=== PATIENT | female | born 1940 | race Caucasian/White ===

== ENCOUNTER → 2017-08-09 | Outpatient (CLI) | payer MEDICARE ==
--- NOTE | 2017-08-09 14:11 | XR ---
Cervical spine HISTORY: Neck pain, degenerative osteoarthritis 5 views of the cervical spine Marked facet arthropathy changes are present bilaterally. Lateral extension of endplates causes lurdes inal encroachment on the left at C3-4, C4-5 and on the right or 5 and C5-6. Cervical vertebral bodies show preserved height, alignment, bone mineralization is reduced. Loss of disc height present at the intervertebral levels especially C3-4, C4-5 and C5-6, there is associated spondylosis. Prevertebral soft tissues are normal. IMPRESSION: Degenerative disc disease, facet arthropathy, foraminal encroachment.
== END | disposition home or self-care (01) ==
LOC: RADXRMAIN 10:35
PROVIDERS: ATTEND Otolaryngology
DX: M50.30 Other cervical disc degeneration, unspecified cervical region (principal); M46.82 Other specified inflammatory spondylopathies, cervical region; M19.90 Unspecified osteoarthritis, unspecified site
CPT/HCPCS: 72050

== ENCOUNTER 2024-03-22 11:31 | Inpatient (IN) | payer MEDICARE ==
--- NOTE | 2024-03-22 12:31 | ED ---
General Adult HPI - General Chief complaint: Weakness Stated complaint: Weakness Time Seen by Provider: 03/22/24 11:45 Source: patient, RN notes reviewed, old records reviewed Mode of arrival: ambulatory Limitations: no limitations - History of Present Illness Initial comments: This is an 83-year-old female who presents to the emergency department compl aining of generalized weakness. Patient states she has been treated for urinary tract infection with Bactrim and she is out of the meds at this point in time. Patient states the weakness just has gotten worse. Patient states last night she was sitting on the bed and she slid off onto her bottom but was unable to get up without maximal amount of effort. Patient states after that she vomited x 1. Patient states she still remains nauseous but no more vomiting no diarrhea patient denies chest pain difficulty breathing shortness of breath. Patient has any fever chills per patient is abdominal pain. Patient denies any back pain. Patient states she has no more dysuria that seems to have resolved with the antibiotic. - Related Data Home Medications Medication Instructions Recorded Confirmed Clopidogrel [Plavix] 75 mg PO DAILY 03/22/24 03/22/24 Enalapril [Vasotec] 20 mg PO DAILY 03/22/24 03/22/24 Levothyroxine Sodium [Synthroid] 75 mcg PO DAILY 03/22/24 03/22/24 Metoprolol Succinate (ER) [Toprol 25 mg PO DAILY 03/22/24 03/22/24 Xl] Rosuvastatin Calcium [Crestor] 40 mg PO DAILY 03/22/24 03/22/24 Sulfamethox-Tmp 800-160Mg [Bactrim 1 tab PO BID 03/22/24 03/22/24 DS 800-160 mg] Allergies Allergy/AdvReac Type Severity Reaction Status Date / Time No Known Allergies Allergy Verified 03/22/24 12:44 Review of Systems ROS Statement: Those systems with pertinent positive or pertinent negative responses have been documented in the HPI. ROS Other: All systems not noted in ROS Statement are negative. Past Medical History Past Medical History: Coronary Artery Disease (CAD), Hyperlipidemia, Hypertension, Thyroid Disorder History of Any Multi-Drug Resistant Organisms: None Reported Past Surgical History: No Surgical Hx Reported Past Psychological History: No Psychological Hx Reported Smoking Status: Never smoker Past Alcohol Use History: None Reported Past Drug Use History: None Reported General Exam - General Exam Comments Initial Comments: GENERAL: Patient is well-developed and well-nourished. Patient is nontoxic and well- hydrated and is in mild distress. ENT: Neck is soft and supple. No significant lymphadenopathy is noted. Oropharynx is clear. Moist mucous membranes. Neck has full range of motion without eliciting any pain. EYES: The sclera were anicteric and conjunctiva were pink and moist. Extraocular movements were intact and pupils were equal round and reactive to light. Eyelids were unremarkable. PULMONARY: Unlabored respirations. Good breath sounds bilaterally. No audible rales rhonchi or wheezing was noted. CARDIOVASCULAR: There is a regular rate and rhythm without any murmurs gallops or rubs. ABDOMEN: Soft and nontender with normal bowel sounds. SKIN: Skin is clear with no lesions or rashes and otherwise unremarkable. NEUROLOGIC: Patient is alert and oriented x3. Cranial nerves II through XII are grossly intact. Motor and sensory are also intact. Normal speech, volume and content. Symmetrical smile. MUSCULOSKELETAL: Normal extremities with adequate strength and full range of motion. LYMPHATICS: No significant lymphadenopathy is noted PSYCHIATRIC: Normal psychiatric evaluation. Limitations: no limitations Course Vital Signs 03/22/24 03/22/24 11:35 13:38 Temperature 97.8 F Pulse Rate 70 55 L Respiratory 20 18 Rate Blood Pressure 124/57 138/54 O2 Sat by Pulse 96 96 Oximetry Medical Decision Making - Medical Decision Making EKG is interpreted by myself read EKG shows sinus bradycardia 57 bpm UT was 179 QRS is 100 QT interval 376 QTc is 371. Patient EKG shows no ST segment ovation or depression Was pt. sent in by a medical professional or institution (, PA, REFRIGERATION SYSTEM INSTALLER, urgent care, hospital, or fdc...) When possible be specific @ -No Did you speak to anyone other than the patient for history (EMS, parent, family, police, friend...)? What history was obtained from this source @ -No Did you review nursing and triage notes (agree or disagree)? Why? @ -I reviewed and agree with nursing and triage notes Were old charts reviewed (outside hosp., previous admission, EMS record, old EKG, old radiological studies, urgent care reports/EKG's, fdc records)? Report findings @ -No old charts were reviewed Differential Diagnosis (chest pain, altered mental status, abdominal pain women, abdominal pain men, vaginal bleeding, weakness, fever, dyspnea, syncope, headache, dizziness, GI bleed, back pain, seizure, CVA, palpatations, mental health, musculoskeletal)? @ -Differential Weakness: Hypoglycemia, shock, sepsis, hyponatremia, anemia, infection, CO, ETOH, adverse medicine reaction, overdose, stroke, this is not meant to be an all-inclusive list. EKG interpreted by me (3pts min.). @ -As above X-rays interpreted by me (1pt min.). @ -Chest x-ray shows no acute normality CT interpreted by me (1pt min.). @ -None done U/S interpreted by me (1pt. min.). @ -None done What testing was considered but not performed or refused? (CT, X-rays, U/S, labs)? Why? @ -None What meds were considered but not given or refused? Why? @ -None Did you discuss the management of the patient with other professionals (professionals i.e. , PA, REFRIGERATION SYSTEM INSTALLER, lab, RT, psych nurse, social media executive, counter installer, teacher, special loan officer, heel caser)? Give summary @ -I spoke with Dr. Ramirez agreed to admit the patient to the patient relative and yours Was smoking cessation discussed for >3mins.? @ -No Was critical care preformed (if so, how long)? @ -No Were there social determinants of health that impacted care today? How? (Homelessness, low income, unemployed, alcoholism, drug addiction, transportation, low edu. Level, literacy, decrease access to med. care, longterm, rehab)? @ -No Was there de-escalation of care discussed even if they declined (Discuss DNR or withdrawal of care, Hospice)? DNR status @ -No What co-morbidities impacted this encounter? (DM, HTN, Smoking, COPD, CAD, Cancer, CVA, ARF, Chemo, Hep., AIDS, mental health diagnosis, sleep apnea, morbid obesity)? @ -None Was patient admitted / discharged? Hospital course, mention meds given and route, prescriptions, significant lab abnormalities, going to OR and other pertinent info. @ -Patient's sodium was low I did give the patient 500 cc bolus. Patient was still feeling considerably weak and did not feel comfortable going home so she did want to stay I spoke with Dr. Ramirez agreed admit the patient admit the patient recommending her Undiagnosed new problem with uncertain prognosis? @ -No Drug Therapy requiring intensive monitoring for toxicity (Heparin, Nitro, Insulin, Cardizem)? @ -No Were any procedures done? @ -No Diagnosis/symptom? @ -Weakness Acute, or Chronic, or Acute on Chronic? @ -Acute Uncomplicated (without systemic symptoms) or Complicated (systemic symptoms)? @ -Complicated Side effects of treatment? @ -No Exacerbation, Progression, or Severe Exacerbation? @ -No Poses a threat to life or bodily function? How? (Chest pain, USA, CO, pneumonia, PE, COPD, DKA, ARF, appy, cholecystitis, CVA, Diverticulitis, Homicidal, Suicidal, threat to staff... and all critical care pts) @ -No Diagnosis/symptom? @ -Hyponatremia Acute, or Chronic, or Acute on Chronic? @ -Acute Uncomplicated (without systemic symptoms) or Complicated (systemic symptoms)? @ -Complicated Side effects of treatment? @ -None Exacerbation, Progression, or Severe Exacerbation] @ -No Poses a threat to life or bodily function? @ -Yes this can lead to extreme weakness and falls. - Lab Data Result diagrams: 03/22/24 12:05 03/22/24 12:05 Lab Results 03/22/24 03/22/24 03/22/24 Range/Units 12:02 12:05 12:05 WBC 6.9 (3.8-10.6) k/uL RBC 4.30 (3.80-5.40) m/uL Hgb 13.7 (11.4-16.0) gm/dL Hct 40.0 (34.0-46.0) % MCV 93.0 (80.0-100.0) fL MCH 31.9 (25.0-35.0) pg MCHC 34.3 (31.0-37.0) g/dL RDW 12.6 (11.5-15.5) % Plt Count 187 (150-450) k/uL MPV 7.8 Neutrophils % 64 % Lymphocytes % 25 % Monocytes % 8 % Eosinophils % 1 % Basophils % 0 % Neutrophils # 4.4 (1.3-7.7) k/uL Lymphocytes # 1.7 (1.0-4.8) k/uL Monocytes # 0.5 (0-1.0) k/uL Eosinophils # 0.1 (0-0.7) k/uL Basophils # 0.0 (0-0.2) k/uL PT 10.1 (10.0-12.5) sec INR 0.9 (<1.2) APTT 22.3 (22.0-30.0) sec Sodium (137-145) mmol/L Potassium (3.5-5.1) mmol/L Chloride (98-107) mmol/L Carbon Dioxide (22-30) mmol/L Anion Gap mmol/L BUN (7-17) mg/dL Creatinine (0.52-1.04) mg/dL Est GFR (CKD-EPI)AfAm (>60 ml/min/1.73 sqM) Est GFR (CKD-EPI)NonAf (>60 ml/min/1.73 sqM) Glucose (74-99) mg/dL Plasma Lactic Acid Andry (0.7-2.0) mmol/L Calcium (8.4-10.2) mg/dL Magnesium (1.6-2.3) mg/dL Total Bilirubin (0.2-1.3) mg/dL AST (14-36) U/L ALT (4-34) U/L Alkaline Phosphatase (38-126) U/L Troponin I (0.000-0.034) ng/mL Total Protein (6.3-8.2) g/dL Albumin (3.5-5.0) g/dL TSH (0.465-4.680) mIU/L Urine Color Colorless Urine Appearance Cloudy H (Clear) Urine pH 6.0 (5.0-8.0) Ur Specific [place] 1.016 (1.001-1.035) Urine Protein 1+ H (Negative) Urine Glucose (UA) Negative (Negative) Urine Ketones Negative (Negative) Urine Blood Moderate H (Negative) Urine Nitrite Negative (Negative) Urine Bilirubin Negative (Negative) Urine Urobilinogen <2.0 (<2.0) mg/dL Ur Leukocyte Esterase Negative (Negative) Urine RBC 1 (0-5) /hpf Urine WBC 7 H (0-5) /hpf Ur Squamous Epith Cells 3 (0-4) /hpf Amorphous Sediment Rare H (None) /hpf Hyaline Casts 5 H (0-2) /lpf Urine Mucus Rare H (None) /hpf 03/22/24 03/22/24 03/22/24 Range/Units 12:05 12:05 12:05 WBC (3.8-10.6) k/uL RBC (3.80-5.40) m/uL Hgb (11.4-16.0) gm/dL Hct (34.0-46.0) % MCV (80.0-100.0) fL MCH (25.0-35.0) pg MCHC (31.0-37.0) g/dL RDW (11.5-15.5) % Plt Count (150-450) k/uL MPV Neutrophils % % Lymphocytes % % Monocytes % % Eosinophils % % Basophils % % Neutrophils # (1.3-7.7) k/uL Lymphocytes # (1.0-4.8) k/uL Monocytes # (0-1.0) k/uL Eosinophils # (0-0.7) k/uL Basophils # (0-0.2) k/uL PT (10.0-12.5) sec INR (<1.2) APTT (22.0-30.0) sec Sodium 128 L (137-145) mmol/L Potassium 3.8 (3.5-5.1) mmol/L Chloride 100 (98-107) mmol/L Carbon Dioxide 21 L (22-30) mmol/L Anion Gap 7 mmol/L BUN 17 (7-17) mg/dL Creatinine 1.51 H (0.52-1.04) mg/dL Est GFR (CKD-EPI)AfAm 36 (>60 ml/min/1.73 sqM) Est GFR (CKD-EPI)NonAf 32 (>60 ml/min/1.73 sqM) Glucose 110 H (74-99) mg/dL Plasma Lactic Acid Andry 1.0 (0.7-2.0) mmol/L Calcium 10.1 (8.4-10.2) mg/dL Magnesium 2.1 (1.6-2.3) mg/dL Total Bilirubin 0.6 (0.2-1.3) mg/dL AST 53 H (14-36) U/L ALT 62 H (4-34) U/L Alkaline Phosphatase 91 (38-126) U/L Troponin I 0.013 (0.000-0.034) ng/mL Total Protein 6.2 L (6.3-8.2) g/dL Albumin 3.9 (3.5-5.0) g/dL TSH 0.606 (0.465-4.680) mIU/L Urine Color Urine Appearance (Clear) Urine pH (5.0-8.0) Ur Specific [place] (1.001-1.035) Urine Protein (Negative) Urine Glucose (UA) (Negative) Urine Ketones (Negative) Urine Blood (Negative) Urine Nitrite (Negative) Urine Bilirubin (Negative) Urine Urobilinogen (<2.0) mg/dL Ur Leukocyte Esterase (Negative) Urine RBC (0-5) /hpf Urine WBC (0-5) /hpf Ur Squamous Epith Cells (0-4) /hpf Amorphous Sediment (None) /hpf Hyaline Casts (0-2) /lpf Urine Mucus (None) /hpf Disposition Clinical Impression: Hyponatremia, Weakness Disposition: ADMITTED IP TO THIS HOSP Referrals: Cisco Mejia DO [Primary Care Provider] - 1-2 days Time of Disposition: 14:19
[2024-03-22 12:39] LABS: Basophils % (A) 0 %; Eosinophils # (A) 0.1 k/uL (0-0.7); Eosinophils % (A) 1 %; HGB 13.7 gm/dL (11.4-16.0); Lymphocytes # (A) 1.7 k/uL (1.0-4.8); Lymphocytes % (A) 25 %; MCH 31.9 pg (25.0-35.0); MCHC 34.3 g/dL (31.0-37.0); Mean Platelet Volume 7.8; Monocytes # (A) 0.5 k/uL (0-1.0); Monocytes % (A) 8 %; Neutrophils # (A) 4.4 k/uL (1.3-7.7); Neutrophils % (A) 64 %; Platelet Count 187 k/uL (150-450); RDW 12.6 % (11.5-15.5); WBC 6.9 k/uL (3.8-10.6)
[2024-03-22] MEDS: SODIUM CHLORIDE 0.9% 500 ML 500 ML IV STA (12:42)
[2024-03-22 12:44] LABS: Amorphous Sediment,Urine Rare /hpf; Appearance,Urine Cloudy (Clear); Bilirubin,Urine Negative (Negative); Blood,Urine Moderate (Negative); Color,Urine Colorless; Glucose,Urine (UA) Negative (Negative); Hyaline Casts,Urine 5 /lpf (0-2); Ketones,Urine Negative (Negative); Leukocyte Esterase,Urine Negative (Negative); Mucus,Urine Rare /hpf; Nitrite,Urine Negative (Negative); Protein,Urine 1+ (Negative); RBC,Urine 1 /hpf (0-5); Specific Gravity,Urine 1.016 (1.001-1.035); Squamous Epithelial Cell,Urine 3 /hpf (0-4); Urobilinogen,Urine <2.0 mg/dL (<2.0); WBC,Urine 7 /hpf (0-5)
[2024-03-22 12:49] LABS: Anion Gap 7 mmol/L; Blood Urea Nitrogen 17 mg/dL (7-17); Carbon Dioxide 21 mmol/L (22-30); Chloride 100 mmol/L (98-107); Glucose 110 mg/dL (74-99); Potassium 3.8 mmol/L (3.5-5.1); Sodium 128 mmol/L (137-145)
[2024-03-22 12:50] LABS: ALT 62 U/L (4-34); AST 53 U/L (14-36); African American GFR (CKD) 36 (>60 ml/min/1.73 sqM); Albumin 3.9 g/dL (3.5-5.0); Alkaline Phosphatase 91 U/L (38-126); Calcium 10.1 mg/dL (8.4-10.2); Magnesium 2.1 mg/dL (1.6-2.3); Non-African American GFR(CKD) 32 (>60 ml/min/1.73 sqM); Total Bilirubin 0.6 mg/dL (0.2-1.3); Total Protein 6.2 g/dL (6.3-8.2)
[2024-03-22 12:59] LABS: INR 0.9 (<1.2); Partial Thromboplastin Time 22.3 sec (22.0-30.0); Prothrombin Time 10.1 sec (10.0-12.5)
[2024-03-22] MEDS: ONDANSETRON 4 MG/2 ML VIAL IVP STA (13:36)
--- NOTE | 2024-03-22 13:51 | XR ---
EXAMINATION TYPE: XR chest 2V DATE OF EXAM: 03/22/2024 1:34 PM CLINICAL INDICATION:Female, 83 years old with history of Weakness; PH[facility] COMPARISON: None TECHNIQUE: XR chest 2V Frontal and lateral views of the chest. FINDINGS: Lungs/Pleura: There is no evidence of pleural effusion, focal consolidation, or pneumothorax. Pulmonary vascularity: Unremarkable. Heart/mediastinum: Cardiomediastinal silhouette is unremarkable. Musculoskeletal: No acute osseous pathology. IMPRESSION: No acute cardiopulmonary disease/process.
[2024-03-22] MEDS: SODIUM CHLORIDE 0.9% 1,000 ML IV ONE (14:38)
[2024-03-22] MEDS ORDERED: ZOLPIDEM 5 MG TAB PO PRN (20:20)
[2024-03-22] MEDS ORDERED: CALCIUM CARBONATE 500 MG CHEWABLE PO PRN (20:39)
[2024-03-22] MEDS ORDERED: LORazepam 0.5 MG TAB PO PRN (20:39)
[2024-03-22] MEDS ORDERED: NALOXONE 0.4 MG/ML 1 ML VIAL IV PRN (20:39)
--- NOTE | 2024-03-22 20:41 | P.HPIM ---
History of Present Illness H&P Date: 03/22/24 Chief Complaint: Very weak Very pleasant 83 old patient follows with Dr. Cisco Cunningham. Chronic stable medical conditions include hypertension, hyperlipidemia, hypothyroid, spinal stenosis. Patient was treated for Bactrim for last 5 days for UTI by her family doctor. For about a week patient is been getting weaker and weaker. Poor appetite. Can barely walk. Shaky. Some dizziness lightheadedness. Denies any chest pain or shortness of breath. No UTI symptoms. 2 years ago patient did have a bleeding peptic ulcer disease. Treated with medications. She lives alone. Does use a rollator. She been on Bactrim for last 5 days for her UTI. Normally has a bowel every day or every other day. Review of systems: GEN.: Weak tired decreased appetite EYES: None HEENT: None NECK: None RESPIRATORY: None CARDIOVASCULAR: None GASTROINTESTINAL: None GENITOURINARY: None MUSCULOSKELETAL: Some joint pains especially in the back e LYMPHATICS: None HEMATOLOGICAL: None PSYCHIATRY: None NEUROLOGICAL: Does use a rollator e Social history: No smoking no alcohol. Lives alone. Does use a rollator Physical examination: VITAL SIGNS: 98, 51, 16, 118/52, 97% room air GENERAL: BMI 25.4, laying in bed awake tired. EYES: Pupils equal. Conjunctiva sarah l. HEENT: External appearance of nose and ears normal, oral cavity grossly normal. NECK: JVD not raised; masses not palpable. HEART: First and second heart sounds are normal; no edema. LUNGS: Respiratory rate normal; clear to auscultation. ABDOMEN: Soft, nontender, liver spleen not palpable, no masses palpable. PSYCH: Alert and oriented x3; mood and affect sarah l. MUSCULOSKELETAL:No Clubbing/cyanosis;muscles-grossly intact. OA NEUROLOGICAL: Cranial nerves grossly intact; no facial asymmetry, power and sensation grossly intact. LYMPHATICS: No lymph nodes palpable in the axilla and neck INVESTIGATIONS, reviewed in the clinical context: March 22: White count 6.9 hemoglobin 13.7 platelets 187 sodium 128 potassium 3.8 BUN 17 creatinine 1.51 TSH 0.606 UA: Protein 1+ blood moderate WBC 7 squamous epithelial cells 3 EKG tracing personally reviewed by me-normal sinus rhythm. 57/min. Chest x-ray film personally reviewed by me-unremarkable Assessment plan: -Acute kidney injury likely ATN/interstitial nephritis from Bactrim and decreased oral intake IV fluids. Stop Bactrim. Hold Vasotec -Acute medical debility/asthenia from acute kidney injury -Essential hypertension Hold Vasotec. Toprol-XL 25 mg a day -Chronic spinal stenosis Tylenol as needed -Hyperlipidemia On Crestor. 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 Given the complexity and severity of patient's condition expect the patient to be in the hospital at least for 2 overnights Past Medical History Past Medical History: Coronary Artery Disease (CAD), Hyperlipidemia, Hypertension, Thyroid Disorder History of Any Multi-Drug Resistant Organisms: None Reported Past Surgical History: No Surgical Hx Reported Past Psychological History: No Psychological Hx Reported Smoking Status: Never smoker Past Alcohol Use History: None Reported Past Drug Use History: None Reported - Past Family History Mother Family Medical History: Congestive Heart Failure (CHF) Father History Unknown: Yes Medications and Allergies Home Medications Medication Instructions Recorded Confirmed Type Clopidogrel [Plavix] 75 mg PO DAILY 03/22/24 03/22/24 History Enalapril [Vasotec] 20 mg PO DAILY 03/22/24 03/22/24 History Levothyroxine Sodium [Synthroid] 75 mcg PO DAILY 03/22/24 03/22/24 History Metoprolol Succinate (ER) [Toprol 25 mg PO DAILY 03/22/24 03/22/24 History Xl] Rosuvastatin Calcium [Crestor] 40 mg PO DAILY 03/22/24 03/22/24 History Sulfamethox-Tmp 800-160Mg [Bactrim 1 tab PO BID 03/22/24 03/22/24 History DS 800-160 mg] Allergies Allergy/AdvReac Type Severity Reaction Status Date / Time No Known Allergies Allergy Verified 03/22/24 12:44 Physical Exam Vitals: Vital Signs Temp Pulse Pulse Resp BP BP Pulse Ox 03/22/24 19:04 98.0 F 51 L 16 118/52 97 03/22/24 17:15 52 L 03/22/24 17:13 98.3 F 48 L 20 138/56 96 03/22/24 16:50 98.2 F 55 L 18 151/57 97 03/22/24 13:38 55 L 18 138/54 96 03/22/24 11:35 97.8 F 70 20 124/57 96 Intake and Output 03/22/24 03/22/24 03/22/24 06:59 14:59 22:59 Intake Total 200 Balance 200 Intake: Intake, IV Titration 200 Amount Sodium Chloride 0.9% 1, 200 000 ml @ 100 mls/hr IV . Q10H ONE Rx#:[id number] Other: Weight 58.967 kg 58.967 kg Results CBC & Chem 7: 03/22/24 12:05 03/22/24 12:05 Labs: Abnormal Lab Results - Last 24 Hours (Table) 03/22/24 03/22/24 Range/Units 12:02 12:05 Sodium 128 L (137-145) mmol/L Carbon Dioxide 21 L (22-30) mmol/L Creatinine 1.51 H (0.52-1.04) mg/dL Glucose 110 H (74-99) mg/dL AST 53 H (14-36) U/L ALT 62 H (4-34) U/L Total Protein 6.2 L (6.3-8.2) g/dL Urine Appearance Cloudy H (Clear) Urine Protein 1+ H (Negative) Urine Blood Moderate H (Negative) Urine WBC 7 H (0-5) /hpf Amorphous Sediment Rare H (None) /hpf Hyaline Casts 5 H (0-2) /lpf Urine Mucus Rare H (None) /hpf Thrombosis Risk Factor Assmnt - Choose All That Apply Any of the Below Risk Factors Present?: Yes Each Risk Factor Represents 3 Points: Age 75 years or older Thrombosis Risk Factor Assessment Total Risk Factor Score: 3 Thrombosis Risk Factor Assessment Level: Moderate Risk
[2024-03-22] MEDS: MELATONIN 3 MG TABLET PO PRN (22:21)
[2024-03-22] MEDS: SODIUM CHLORIDE 0.9% 1,000 ML IV SCH (23:56)
[2024-03-23] MEDS: LEVOTHYROXINE 75 MCG TAB PO SCH (05:29)
[2024-03-23 06:31] LABS: African American GFR (CKD) 37 (>60 ml/min/1.73 sqM); Anion Gap 2 mmol/L; Blood Urea Nitrogen 14 mg/dL (7-17); Calcium 9.1 mg/dL (8.4-10.2); Carbon Dioxide 18 mmol/L (22-30); Chloride 110 mmol/L (98-107); Glucose 93 mg/dL (74-99); Non-African American GFR(CKD) 32 (>60 ml/min/1.73 sqM); Potassium 4.2 mmol/L (3.5-5.1); Sodium 130 mmol/L (137-145)
[2024-03-23] MEDS: METOPROLOL SUCCINATE (ER) 25 MG TAB.ER.24H PO SCH (07:24)
[2024-03-23] MEDS: CLOPIDOGREL 75 MG TAB PO SCH (08:53)
[2024-03-23] MEDS: ATORVASTATIN 80 MG TAB PO SCH (08:53)
[2024-03-23] MEDS: PANTOPRAZOLE 40 MG TABLET PO SCH (08:53)
[2024-03-23] MEDS ORDERED: lisinopriL 20 MG TAB PO SCH (09:00)
--- NOTE | 2024-03-23 15:21 | P.PN ---
Progress Note - Text Progress Note Date: 03/23/24 Chief Complaint: Very weak Very pleasant 83 old patient follows with Dr. Cisco Cunningham. Chronic stable medical conditions include hypertension, hyperlipidemia, hypothyroid, spinal stenosis. Patient was treated for Bactrim for last 5 days for UTI by her family doctor. For about a week patient is been getting weaker and weaker. Poor appetite. Can barely walk. Shaky. Some dizziness lightheadedness. Denies any chest pain or shortness of breath. No UTI symptoms. 2 years ago patient did have a bleeding peptic ulcer disease. Treated with medications. She lives alone. Does use a rollator. She been on Bactrim for last 5 days for her UTI. Normally has a bowel every day or every other day. March 23: Patient feeling better. Did tolerate some diet. Up in a chair. Discussed length with patient 2 daughters at the bedside. Have the patient walk in the hallway. Getting IV fluids. Daughter will look into any support system at home. Active Medications Acetaminophen (Acetaminophen Tab 325 Mg Tab) 650 mg PO Q6HR PRN PRN Reason: Mild Pain or Fever > 100.5 Atorvastatin Calcium (Atorvastatin 80 Mg Tab) 80 mg PO DAILY [facility] Last Admin: 03/23/24 08:53 Dose: 80 mg Calcium Carbonate/Glycine (Calcium Carbonate 500 Mg Chewable) 1,000 mg PO Q4HR PRN PRN Reason: Dyspepsia Clopidogrel Bisulfate (Clopidogrel 75 Mg Tab) 75 mg PO DAILY [facility] Last Admin: 03/23/24 08:53 Dose: 75 mg Sodium Chloride (Saline 0.9%) 1,000 mls @ 100 mls/hr IV .Q10H [facility] Last Admin: 03/23/24 05:30 Dose: 100 mls/hr Lactulose (Lactulose 20 Gm/30 Ml Cup) 20 gm PO DAILY PRN PRN Reason: Constipation Levothyroxine Sodium (Levothyroxine 75 Mcg Tab) 75 mcg PO DAILY@0630 [facility] Last Admin: 03/23/24 05:29 Dose: 75 mcg Lorazepam (Lorazepam 0.5 Mg Tab) 0.5 mg PO Q6HR PRN PRN Reason: Anxiety Melatonin (Melatonin 3 Mg Tablet) 3 mg PO HS PRN PRN Reason: Insomnia Last Admin: 03/22/24 22:21 Dose: 3 mg Metoprolol Succinate (Metoprolol Succinate (Er) 25 Mg Tab.Er.24h) 25 mg PO DAILY [facility] Last Admin: 03/23/24 07:24 Dose: Not Given Naloxone HCl (Naloxone 0.4 Mg/Ml 1 Ml Vial) 0.2 mg IV Q2M PRN PRN Reason: Opioid Reversal Pantoprazole Sodium (Pantoprazole 40 Mg Tablet) 40 mg PO AC-BRKFST [facility] Last Admin: 03/23/24 08:53 Dose: 40 mg Zolpidem Tartrate (Zolpidem 5 Mg Tab) 5 mg PO HS PRN PRN Reason: Insomnia Social history: No smoking no alcohol. Lives alone. Does use a rollator Physical examination: VITAL SIGNS: 98.1, 52, 16, 106 x 61, 94% room air GENERAL: Up in recliner, looking better EYES: Pupils equal. Conjunctiva sarah l. HEENT: External appearance of nose and ears normal, oral cavity grossly normal. NECK: JVD not raised; masses not palpable. HEART: First and second heart sounds are normal; no edema. LUNGS: Respiratory rate normal; clear to auscultation. ABDOMEN: Soft, nontender, liver spleen not palpable, no masses palpable. PSYCH: Alert and oriented x3; mood and affect sarah l. MUSCULOSKELETAL:No Clubbing/cyanosis;muscles-grossly intact. OA INVESTIGATIONS, reviewed in the clinical context: March 23: Sodium 130 potassium 4.2 BUN 14 creatinine 1.48 March 22: White count 6.9 hemoglobin 13.7 platelets 187 sodium 128 potassium 3.8 BUN 17 creatinine 1.51 TSH 0.606 UA: Protein 1+ blood moderate WBC 7 squamous epithelial cells 3 EKG tracing personally reviewed by me-normal sinus rhythm. 57/min. Chest x-ray film personally reviewed by me-unremarkable Assessment plan: -Acute kidney injury likely ATN/interstitial nephritis from Bactrim and decreased oral intake: Slight improvement IV fluids. Stop Bactrim. Hold Vasotec -Acute medical debility/asthenia from acute kidney injury: Some improvement -Essential hypertension Hold Vasotec. Toprol-XL 25 mg a day -Chronic spinal stenosis Tylenol as needed -Hyperlipidemia On Crestor. 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 Up in a recliner. Ambulate in hallway with assistance supervised. Past Medical History Past Medical History: Coronary Artery Disease (CAD), Hyperlipidemia, Hypertension, Thyroid Disorder History of Any Multi-Drug Resistant Organisms: None Reported Past Surgical History: No Surgical Hx Reported Past Psychological History: No Psychological Hx Reported Smoking Status: Never smoker Past Alcohol Use History: None Reported Past Drug Use History: None Reported
[2024-03-23] MEDS: SODIUM BICARBONATE TAB 650 MG TAB PO SCH (17:15)
[2024-03-23] MEDS: LACTULOSE 20 GM/30 ML CUP PO PRN (20:37)
[2024-03-24 06:09] LABS: African American GFR (CKD) 39 (>60 ml/min/1.73 sqM); Anion Gap 2 mmol/L; Blood Urea Nitrogen 12 mg/dL (7-17); Calcium 9.4 mg/dL (8.4-10.2); Carbon Dioxide 22 mmol/L (22-30); Chloride 112 mmol/L (98-107); Glucose 99 mg/dL (74-99); Non-African American GFR(CKD) 34 (>60 ml/min/1.73 sqM); Potassium 4.2 mmol/L (3.5-5.1); Sodium 136 mmol/L (137-145)
[2024-03-24 12:02] LABS: Appearance,Urine Clear (Clear); Bilirubin,Urine Negative (Negative); Blood,Urine Moderate (Negative); Color,Urine Colorless; Glucose,Urine (UA) Negative (Negative); Ketones,Urine Negative (Negative); Leukocyte Esterase,Urine Negative (Negative); Mucus,Urine Rare /hpf; Nitrite,Urine Negative (Negative); Protein,Urine Trace (Negative); RBC,Urine <1 /hpf (0-5); Specific Gravity,Urine 1.007 (1.001-1.035); Urobilinogen,Urine <2.0 mg/dL (<2.0); WBC,Urine 1 /hpf (0-5)
[2024-03-24] MEDS: PIPERACILLIN-TAZOBACTAM 3.375 GM in SODIUM CHLORIDE 0.9% 100 ML IVPB SCH ×2 (13:13→20:02)
[2024-03-24] MEDS: ACETAMINOPHEN TAB 325 MG TAB PO PRN (13:13)
[2024-03-24] MEDS: polyethylene glycoL 3350 17 GM POWD.PACK PO PRN (17:55)
--- NOTE | 2024-03-24 18:22 | P.PN ---
Progress Note - Text Progress Note Date: 03/24/24 Chief Complaint: Very weak Very pleasant 83 old patient follows with Dr. Cisco Cunningham. Chronic stable medical conditions include hypertension, hyperlipidemia, hypothyroid, spinal stenosis. Patient was treated for Bactrim for last 5 days for UTI by her family doctor. For about a week patient is been getting weaker and weaker. Poor appetite. Can barely walk. Shaky. Some dizziness lightheadedness. Denies any chest pain or shortness of breath. No UTI symptoms. 2 years ago patient did have a bleeding peptic ulcer disease. Treated with medications. She lives alone. Does use a rollator. She been on Bactrim for last 5 days for her UTI. Normally has a bowel every day or every other day. March 23: Patient feeling better. Did tolerate some diet. Up in a chair. Discussed length with patient 2 daughters at the bedside. Have the patient walk in the hallway. Getting IV fluids. Daughter will look into any support system at home. March 24: Patient started having urinary dysuria frequency overnight. Had trouble sleeping. IV Zosyn being started. UA culture being sent off. Active Medications Acetaminophen (Acetaminophen Tab 325 Mg Tab) 650 mg PO Q6HR PRN PRN Reason: Mild Pain or Fever > 100.5 Last Admin: 03/24/24 13:13 Dose: 650 mg Alprazolam (Alprazolam 0.5 Mg Tab) 0.5 mg PO HS [facility]TY Atorvastatin Calcium (Atorvastatin 80 Mg Tab) 80 mg PO DAILY [facility] Last Admin: 03/24/24 08:02 Dose: 80 mg Calcium Carbonate/Glycine (Calcium Carbonate 500 Mg Chewable) 1,000 mg PO Q4HR PRN PRN Reason: Dyspepsia Clopidogrel Bisulfate (Clopidogrel 75 Mg Tab) 75 mg PO DAILY [facility] Last Admin: 03/24/24 08:02 Dose: 75 mg Sodium Chloride (Saline 0.9%) 1,000 mls @ 100 mls/hr IV .Q10H [facility] Last Admin: 03/24/24 13:13 Dose: 100 mls/hr Piperacillin Sod/Tazobactam (Sod 3.375 gm/ Sodium Chloride) 100 mls @ 25 mls/hr IVPB Q8H [facility]; Protocol Lactulose (Lactulose 20 Gm/30 Ml Cup) 20 gm PO DAILY PRN PRN Reason: Constipation Last Admin: 03/23/24 20:37 Dose: 20 gm Levothyroxine Sodium (Levothyroxine 75 Mcg Tab) 75 mcg PO DAILY@0630 [facility] Last Admin: 03/24/24 05:34 Dose: 75 mcg Melatonin (Melatonin 3 Mg Tablet) 3 mg PO HS PRN PRN Reason: Insomnia Last Admin: 03/23/24 20:37 Dose: 3 mg Metoprolol Succinate (Metoprolol Succinate (Er) 25 Mg Tab.Er.24h) 25 mg PO DAILY [facility] Last Admin: 03/24/24 07:10 Dose: Not Given Naloxone HCl (Naloxone 0.4 Mg/Ml 1 Ml Vial) 0.2 mg IV Q2M PRN PRN Reason: Opioid Reversal Pantoprazole Sodium (Pantoprazole 40 Mg Tablet) 40 mg PO AC-BRKFST [facility] Last Admin: 03/24/24 08:02 Dose: 40 mg Polyethylene Glycol (Polyethylene Glycol 3350 17 Gm Powd.Pack) 17 gm PO DAILY PRN PRN Reason: Constipation Last Admin: 03/24/24 17:55 Dose: 17 gm Sodium Bicarbonate (Sodium Bicarbonate Tab 650 Mg Tab) 650 mg PO TID [facility] Last Admin: 03/24/24 17:55 Dose: 650 mg Zolpidem Tartrate (Zolpidem 5 Mg Tab) 5 mg PO HS PRN PRN Reason: Insomnia Social history: No smoking no alcohol. Lives alone. Does use a rollator Physical examination: VITAL SIGNS: 98, 68, 16, 115/64, 95% room air GENERAL: Laying in bed, tired EYES: Pupils equal. Conjunctiva sarah l. HEENT: External appearance of nose and ears normal, oral cavity grossly normal. NECK: JVD not raised; masses not palpable. HEART: First and second heart sounds are normal; no edema. LUNGS: Respiratory rate normal; clear to auscultation. ABDOMEN: Soft, nontender, liver spleen not palpable, no masses palpable. PSYCH: Alert and oriented x3; mood and affect tired MUSCULOSKELETAL:No Clubbing/cyanosis;muscles-grossly intact. OA INVESTIGATIONS, reviewed in the clinical context: March 24: Sodium 136 potassium 4.2 creatinine 1.43 March 23: Sodium 130 potassium 4.2 BUN 14 creatinine 1.48 March 22: White count 6.9 hemoglobin 13.7 platelets 187 sodium 128 potassium 3.8 BUN 17 creatinine 1.51 TSH 0.606 UA: Protein 1+ blood moderate WBC 7 squamous epithelial cells 3 EKG tracing personally reviewed by me-normal sinus rhythm. 57/min. Chest x-ray film personally reviewed by me-unremarkable Assessment plan: -Acute kidney injury likely ATN/interstitial nephritis from Bactrim and decreased oral intake: Slight improvement IV fluids. Stop Bactrim. Hold Vasotec -Acute dysuria frequency of urination. Possible UTI Start IV Zosyn. Repeat UA and culture -Acute medical debility/asthenia from acute kidney injury: Some improvement -Essential hypertension Hold Vasotec. Toprol-XL 25 mg a day -Chronic spinal stenosis Tylenol as needed -Hyperlipidemia On Crestor. 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 IV Zosyn. Discussed with patient Past Medical History Past Medical History: Coronary Artery Disease (CAD), Hyperlipidemia, Hypertension, Thyroid Disorder History of Any Multi-Drug Resistant Organisms: None Reported Past Surgical History: No Surgical Hx Reported Past Psychological History: No Psychological Hx Reported Smoking Status: Never smoker Past Alcohol Use History: None Reported Past Drug Use History: None Reported
[2024-03-24] MEDS: ALPRAZolam 0.5 MG TAB PO SCH (20:02)
[2024-03-25 11:52] LABS: African American GFR (CKD) 40 (>60 ml/min/1.73 sqM); Anion Gap 3 mmol/L; Blood Urea Nitrogen 12 mg/dL (7-17); Calcium 9.3 mg/dL (8.4-10.2); Carbon Dioxide 23 mmol/L (22-30); Chloride 112 mmol/L (98-107); Glucose 132 mg/dL (74-99); Non-African American GFR(CKD) 35 (>60 ml/min/1.73 sqM); Potassium 3.6 mmol/L (3.5-5.1); Sodium 138 mmol/L (137-145)
--- NOTE | 2024-03-25 16:29 | P.PN ---
Progress Note - Text Progress Note Date: 03/25/24 Chief Complaint: Very weak Very pleasant 83 old patient follows with Dr. Cisco Cunningham. Chronic stable medical conditions include hypertension, hyperlipidemia, hypothyroid, spinal stenosis. Patient was treated for Bactrim for last 5 days for UTI by her family doctor. For about a week patient is been getting weaker and weaker. Poor appetite. Can barely walk. Shaky. Some dizziness lightheadedness. Denies any chest pain or shortness of breath. No UTI symptoms. 2 years ago patient did have a bleeding peptic ulcer disease. Treated with medications. She lives alone. Does use a rollator. She been on Bactrim for last 5 days for her UTI. Normally has a bowel every day or every other day. March 23: Patient feeling better. Did tolerate some diet. Up in a chair. Discussed length with patient 2 daughters at the bedside. Have the patient walk in the hallway. Getting IV fluids. Daughter will look into any support system at home. March 24: Patient started having urinary dysuria frequency overnight. Had trouble sleeping. IV Zosyn being started. UA culture being sent off. March 25: Urine symptoms much better. Urine culture from admission was negative. Will continue IV Zosyn. PT OT looking into evaluation for possible rehab. Discussed with forensic social worker. Continue IV fluids. Eating much better. Scratch that Active Medications Acetaminophen (Acetaminophen Tab 325 Mg Tab) 650 mg PO Q6HR PRN PRN Reason: Mild Pain or Fever > 100.5 Last Admin: 03/24/24 13:13 Dose: 650 mg Alprazolam (Alprazolam 0.5 Mg Tab) 0.5 mg PO HS [facility] Last Admin: 03/24/24 20:02 Dose: 0.5 mg Atorvastatin Calcium (Atorvastatin 80 Mg Tab) 80 mg PO DAILY [facility] Last Admin: 03/25/24 08:08 Dose: 80 mg Calcium Carbonate/Glycine (Calcium Carbonate 500 Mg Chewable) 1,000 mg PO Q4HR PRN PRN Reason: Dyspepsia Clopidogrel Bisulfate (Clopidogrel 75 Mg Tab) 75 mg PO DAILY [facility] Last Admin: 03/25/24 08:08 Dose: 75 mg Sodium Chloride (Saline 0.9%) 1,000 mls @ 100 mls/hr IV .Q10H [facility] Last Admin: 03/25/24 08:08 Dose: 100 mls/hr Piperacillin Sod/Tazobactam (Sod 3.375 gm/ Sodium Chloride) 100 mls @ 25 mls/hr IVPB Q8H [facility]; Protocol Last Admin: 03/25/24 14:48 Dose: 25 mls/hr Lactulose (Lactulose 20 Gm/30 Ml Cup) 20 gm PO DAILY PRN PRN Reason: Constipation Last Admin: 03/23/24 20:37 Dose: 20 gm Levothyroxine Sodium (Levothyroxine 75 Mcg Tab) 75 mcg PO DAILY@0630 [facility] Last Admin: 03/25/24 04:23 Dose: 75 mcg Melatonin (Melatonin 3 Mg Tablet) 3 mg PO HS PRN PRN Reason: Insomnia Last Admin: 03/23/24 20:37 Dose: 3 mg Metoprolol Succinate (Metoprolol Succinate (Er) 25 Mg Tab.Er.24h) 25 mg PO DAILY [facility] Last Admin: 03/25/24 08:08 Dose: 25 mg Naloxone HCl (Naloxone 0.4 Mg/Ml 1 Ml Vial) 0.2 mg IV Q2M PRN PRN Reason: Opioid Reversal Pantoprazole Sodium (Pantoprazole 40 Mg Tablet) 40 mg PO AC-BRKFST [facility] Last Admin: 03/25/24 08:08 Dose: 40 mg Polyethylene Glycol (Polyethylene Glycol 3350 17 Gm Powd.Pack) 17 gm PO DAILY PRN PRN Reason: Constipation Last Admin: 03/24/24 17:55 Dose: 17 gm Sodium Bicarbonate (Sodium Bicarbonate Tab 650 Mg Tab) 650 mg PO TID [facility] Last Admin: 03/25/24 08:08 Dose: 650 mg Zolpidem Tartrate (Zolpidem 5 Mg Tab) 5 mg PO HS PRN PRN Reason: Insomnia Social history: No smoking no alcohol. Lives alone. Does use a rollator Physical examination: VITAL SIGNS: 97.6, 74, 18, 152 x 66, 97% room air GENERAL: Resting appears more comfortable EYES: Pupils equal. Conjunctiva sarah l. HEENT: External appearance of nose and ears normal, oral cavity grossly normal. NECK: JVD not raised; masses not palpable. HEART: First and second heart sounds are normal; no edema. LUNGS: Respiratory rate normal; clear to auscultation. ABDOMEN: Soft, nontender, liver spleen not palpable, no masses palpable. PSYCH: Alert and oriented x3; mood and affect normal MUSCULOSKELETAL:No Clubbing/cyanosis;muscles-grossly intact. OA INVESTIGATIONS, reviewed in the clinical context: March 25: Potassium 3.6 creatinine 1.4 March 24: Sodium 136 potassium 4.2 creatinine 1.43 March 23: Sodium 130 potassium 4.2 BUN 14 creatinine 1.48 March 22: White count 6.9 hemoglobin 13.7 platelets 187 sodium 128 potassium 3.8 BUN 17 creatinine 1.51 TSH 0.606 UA: Protein 1+ blood moderate WBC 7 squamous epithelial cells 3 EKG tracing personally reviewed by me-normal sinus rhythm. 57/min. Chest x-ray film personally reviewed by me-unremarkable Assessment plan: -Acute kidney injury likely ATN/interstitial nephritis from Bactrim and decreased oral intake: Slight improvement IV fluids. Stop Bactrim. Hold Vasotec -Acute dysuria frequency of urination. Possible UTI Start IV Zosyn. Repeat UA and culture [with recent antibiotic Bactrim UA/culture can be negative] Given improvement in symptoms continue with antibiotics -Acute medical debility/asthenia from acute kidney injury: Some improvement PT OT following -Essential hypertension Hold Vasotec. Toprol-XL 25 mg a day -Chronic spinal stenosis Tylenol as needed -Hyperlipidemia On Crestor. 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 Patient being evaluated for rehab. Past Medical History Past Medical History: Coronary Artery Disease (CAD), Hyperlipidemia, Hyper tension, Thyroid Disorder History of Any Multi-Drug Resistant Organisms: None Reported Past Surgical History: No Surgical Hx Reported Past Psychological History: No Psychological Hx Reported Smoking Status: Never smoker Past Alcohol Use History: None Reported Past Drug Use History: None Reported
[2024-03-26 11:50] LABS: African American GFR (CKD) 48 (>60 ml/min/1.73 sqM); Anion Gap 1 mmol/L; Blood Urea Nitrogen 13 mg/dL (7-17); Calcium 9.6 mg/dL (8.4-10.2); Carbon Dioxide 25 mmol/L (22-30); Chloride 110 mmol/L (98-107); Glucose 92 mg/dL (74-99); Non-African American GFR(CKD) 41 (>60 ml/min/1.73 sqM); Potassium 3.7 mmol/L (3.5-5.1); Sodium 136 mmol/L (137-145)
[2024-03-26 12:45] VITALS: BP 175/73; PULSE 59; RESP 14; TEMP 97.5
--- NOTE | 2024-03-26 13:33 | P.DS ---
Providers Date of admission: 03/22/24 14:20 Expected date of discharge: 03/26/24 Attending physician: Cornelius Ramirez Primary care physician: Cisco Mejia [facility] Course: Chief Complaint: Very weak Very pleasant 83 old patient follows with Dr. Cisco Cunningham. Chronic stable medical conditions include hypertension, hyperlipidemia, hypothyroid, spinal stenosis. Patient was treated for Bactrim for last 5 days for UTI by her family doctor. For about a week patient is been getting weaker and weaker. Poor appetite. Can barely walk. Shaky. Some dizziness lightheadedness. Denies any chest pain or shortness of breath. No UTI symptoms. 2 years ago patient did have a bleeding peptic ulcer disease. Treated with medications. She lives alone. Does use a rollator. She been on Bactrim for last 5 days for her UTI. Normally has a bowel every day or every other day. March 23: Patient feeling better. Did tolerate some diet. Up in a chair. Discussed length with patient 2 daughters at the bedside. Have the patient walk in the hallway. Getting IV fluids. Daughter will look into any support system at home. March 24: Patient started having urinary dysuria frequency overnight. Had trouble sleeping. IV Zosyn being started. UA culture being sent off. March 25: Urine symptoms much better. Urine culture from admission was negative. Will continue IV Zosyn. PT OT looking into evaluation for possible rehab. Discussed with outreach and education social worker. Continue IV fluids. Eating much better. March 26: No urinary symptoms. Eating well. Up to the bathroom. Patient completed a short course of Augmentin for UTI. Slightly given that he was on antibiotics before coming in the cultures were negative. Questions answered. Spoke to outreach and education social worker. Accepted at rehab Discussion and discharge planning more than 35 minutes Social history: No smoking no alcohol. Lives alone. Does use a rollator Physical examination: VITAL SIGNS: 98.1, 57, 16, 139 x 73, 96% room air GENERAL: Up in chair, comfortable EYES: Pupils equal. Conjunctiva sarah l. HEENT: External appearance of nose and ears normal, oral cavity grossly normal. NECK: JVD not raised; masses not palpable. HEART: First and second heart sounds are normal; no edema. LUNGS: Respiratory rate normal; clear to auscultation. ABDOMEN: Soft, nontender, liver spleen not palpable, no masses palpable. PSYCH: Alert and oriented x3; mood and affect normal MUSCULOSKELETAL:No Clubbing/cyanosis;muscles-grossly intact. OA INVESTIGATIONS, reviewed in the clinical context: March 22: White count 6.9 hemoglobin 13.7 platelets 187 sodium 128 potassium 3.8 BUN 17 creatinine 1.51 TSH 0.606 UA: Protein 1+ blood moderate WBC 7 squamous epithelial cells 3 EKG tracing personally reviewed by me-normal sinus rhythm. 57/min. Chest x-ray film personally reviewed by me-unremarkable Assessment plan: -Acute kidney injury likely ATN/interstitial nephritis from Bactrim and decreased oral intake: Better IV fluids. Stop Bactrim. Hold Vasotec -Acute dysuria frequency of urination. Possible UTI Start IV Zosyn. Repeat UA and culture [with recent antibiotic Bactrim UA/culture can be negative] Given improvement in symptoms continue with antibiotics Complete 3 days of Augmentin -Acute medical debility/asthenia from acute kidney injury: Some improvement PT OT following. Going to rehab -Essential hypertension Hold Vasotec. Toprol-XL 25 mg a day. Add amlodipine 2.5 mg nightly -Chronic spinal stenosis Tylenol as needed -Hyperlipidemia On Crestor. 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- -DNR-as per the patient Disposition: Rehab Past Medical History Past Medical History: Coronary Artery Disease (CAD), Hyperlipidemia, Hypertension, Thyroid Disorder History of Any Multi-Drug Resistant Organisms: None Reported Past Surgical History: No Surgical Hx Reported Past Psychological History: No Psychological Hx Reported Smoking Status: Never smoker Past Alcohol Use History: None Reported Past Drug Use History: None Reported Plan - Discharge Summary Discharge Rx Participant: Yes New Discharge Prescriptions: New Pantoprazole [Protonix] 40 mg PO AC-BRKFST tab Sodium Bicarbonate Tab 650 mg PO TID tab Amoxic-Pot Clav 875-125Mg [Augmentin 875-125] 1 tab PO BID #6 tab Melatonin 3 mg PO HS PRN tab PRN Reason: Insomnia amLODIPine [Norvasc] 2.5 mg PO HS #1 tablet Continue Rosuvastatin Calcium [Crestor] 40 mg PO DAILY Metoprolol Succinate (ER) [Toprol XL] 25 mg PO DAILY Levothyroxine Sodium [Synthroid] 75 mcg PO DAILY Clopidogrel [Plavix] 75 mg PO DAILY Discontinued Sulfamethox-Tmp 800-160Mg [Bactrim DS 800-160 mg] 1 tab PO BID Enalapril [Vasotec] 20 mg PO DAILY Discharge Medication List Clopidogrel [Plavix] 75 mg PO DAILY 03/22/24 [History] Levothyroxine Sodium [Synthroid] 75 mcg PO DAILY 03/22/24 [History] Metoprolol Succinate (ER) [Toprol XL] 25 mg PO DAILY 03/22/24 [History] Rosuvastatin Calcium [Crestor] 40 mg PO DAILY 03/22/24 [History] Amoxic-Pot Clav 875-125Mg [Augmentin 875-125] 1 tab PO BID #6 tab 03/26/24 [Rx] Melatonin 3 mg PO HS PRN tab 03/26/24 [Rx] Pantoprazole [Protonix] 40 mg PO AC-BRKFST tab 03/26/24 [Rx] Sodium Bicarbonate Tab 650 mg PO TID tab 03/26/24 [Rx] amLODIPine [Norvasc] 2.5 mg PO HS #1 tablet 03/26/24 [Rx] Follow up Appointment(s)/Referral(s): Cisco Mejia DO [Primary Care Provider] - 1-2 days
== END 2024-03-26 17:57 | DRG 683 ==
LOC: EC 11:31 → 5NMEDONC 14:20
PROVIDERS: ADMIT Hospitalist; ATTEND Hospitalist
DX: N17.0 Acute kidney failure with tubular necrosis (principal); E87.1 Hypo-osmolality and hyponatremia; N10 Acute pyelonephritis; I10 Essential (primary) hypertension; E03.9 Hypothyroidism, unspecified; Z66 Do not resuscitate; I25.10 Atherosclerotic heart disease of native coronary artery without angina pectoris; E78.5 Hyperlipidemia, unspecified; R26.9 Unspecified abnormalities of gait and mobility; M48.00 Spinal stenosis, site unspecified; F41.9 Anxiety disorder, unspecified; K59.00 Constipation, unspecified; G47.00 Insomnia, unspecified; Z79.02 Long term (current) use of antithrombotics/antiplatelets; Z79.890 Hormone replacement therapy; Z79.899 Other long term (current) drug therapy; Z60.2 Problems related to living alone
CPT/HCPCS: 36415; 71046; 80048; 80053; 81001; 83605; 83735; 84443; 84484; 85025; 85610; 85730; 87086; 93005; 96361; 96374; 99285